=== PATIENT | female | born 1980 | race African-American/Black ===

== ENCOUNTER 2022-03-13 10:01 | Emergency (ER) | payer OTHER, BC ==
[2022-03-13] MEDS ORDERED: Ketorolac Tromethamine 30 MG/ML VIAL ONE (10:47)
== END 2022-03-13 10:49 | disposition home or self-care (01) ==
LOC: CSHERS 10:01
DX: M62.830 Muscle spasm of back (principal); G62.9 Polyneuropathy, unspecified
CPT/HCPCS: 99283; J1885